=== PATIENT | female | born 1990 | race African-American/Black ===

== ENCOUNTER 2017-04-29 20:56 | Emergency (ER) | payer OTHER ==
[~2017-04-29] VITALS: Ht 152.4 cm; Wt 50.0 kg
[2017-04-30 06:03] VITALS: BP 122/75
== END 2017-04-30 06:04 | disposition home or self-care (01) ==
LOC: ER 20:56
DX: R05 Cough (principal)
CPT/HCPCS: 71045; 81025; 87804; 99285